=== PATIENT | male | born 1970 | race African-American/Black ===

== ENCOUNTER 2024-05-19 14:00 | Outpatient (CLI) | payer MEDICAID, MEDICARE, OTHER | END 2024-05-19 14:01 | disposition home or self-care (01) | LOC: CSHWCC 14:00 | PROVIDERS: ATTEND Nurse Practitioner Family | DX: I87.332 Chronic venous hypertension (idiopathic) with ulcer and inflammation of left lower extremity (principal); L97.521 Non-pressure chronic ulcer of other part of left foot limited to breakdown of skin; N18.6 End stage renal disease; I73.9 Peripheral vascular disease, unspecified | CPT/HCPCS: 97597; 99213; G0463 ==

== ENCOUNTER 2024-05-26 13:00 | Outpatient (CLI) | payer MEDICARE | END 2024-05-26 13:01 | disposition home or self-care (01) | LOC: CSHWCC 13:00 | PROVIDERS: ATTEND Nurse Practitioner Family | DX: I87.332 Chronic venous hypertension (idiopathic) with ulcer and inflammation of left lower extremity (principal); L97.521 Non-pressure chronic ulcer of other part of left foot limited to breakdown of skin; N18.6 End stage renal disease; I73.9 Peripheral vascular disease, unspecified | CPT/HCPCS: 11042; G0463; 99212 ==

== ENCOUNTER 2024-06-02 14:07 | Outpatient (CLI) | payer MEDICARE | END 2024-06-02 14:08 | disposition home or self-care (01) | LOC: CSHWCC 14:07 | PROVIDERS: ATTEND Nurse Practitioner Family | DX: I87.332 Chronic venous hypertension (idiopathic) with ulcer and inflammation of left lower extremity (principal); L97.521 Non-pressure chronic ulcer of other part of left foot limited to breakdown of skin; N18.6 End stage renal disease; I73.9 Peripheral vascular disease, unspecified | CPT/HCPCS: 11042 ==

== ENCOUNTER 2024-06-30 13:36 | Outpatient (CLI) | payer MEDICARE | END 2024-06-30 13:37 | disposition home or self-care (01) | LOC: CSHWCC 13:36 | PROVIDERS: ATTEND Nurse Practitioner Family | DX: I87.332 Chronic venous hypertension (idiopathic) with ulcer and inflammation of left lower extremity (principal); L97.521 Non-pressure chronic ulcer of other part of left foot limited to breakdown of skin; N18.6 End stage renal disease; I73.9 Peripheral vascular disease, unspecified | CPT/HCPCS: 99212; G0463 ==

== ENCOUNTER 2024-07-07 13:56 | Outpatient (CLI) | payer MEDICARE | END 2024-07-07 13:57 | disposition home or self-care (01) | LOC: CSHWCC 13:56 | PROVIDERS: ATTEND Nurse Practitioner Family | DX: I87.332 Chronic venous hypertension (idiopathic) with ulcer and inflammation of left lower extremity (principal); L97.521 Non-pressure chronic ulcer of other part of left foot limited to breakdown of skin; I73.9 Peripheral vascular disease, unspecified; N18.6 End stage renal disease | CPT/HCPCS: 11042; G0463; 99212 ==